=== PATIENT | female | born 1985 | race Caucasian/White ===

== ENCOUNTER 2016-11-09 13:15 | Emergency (ER) | payer BC ==
[2016-11-09] MEDS ORDERED: Acetaminophen TAB* 325 MG PO ONE (16:15)
[2016-11-09 16:42] VITALS: BP 140/90
--- NOTE | 2016-11-09 16:42 | RAD ---
INDICATION: Right foot pain heard pop today. TECHNIQUE: 3 views of the right foot were obtained. FINDINGS: The bones are in normal alignment. No fracture is seen. Joint spaces appear maintained. IMPRESSION: NO EVIDENCE FOR FRACTURE.
[2016-11-09] MEDS ORDERED: predniSONE TAB* 20 MG PO ONE (17:01)
--- NOTE | 2016-11-09 17:17 | UC ---
Blue Jacinto Anna, scribed for Frida Barnhart MD on 11/09/16 at 1452 . Lower Extremity/Ankle HPI - HPI Summary HPI Summary: Patient is a 31 y/o female coming to [facility] [place] presenting with the sudden onset of constant right foot pain that began today. She was walking and went to run across the street, when she felt pain on the bottom of the arch of her foot, near the big toe. The pain is exacerbated by bearing weight. Denies ankle pain. Per triage notes, the patient describes the severity of the pain as 8/10. She took 800 mg of ibuprofen at 1300, which did not alleviate the pain. She has been treated for plantar fasciitis on her right foot, but this has been resolved , and she received her last cortisone shot 1 year ago. She denies a Hx of HTN. - History of Current Complaint Chief Complaint: UCLowerExtremity Stated Complaint: FOOT INJURY Hx Obtained From: Patient Hx Last Menstrual Period: 10/25/16 ?: No Onset/Duration: Sudden Onset, Still Present Severity Initially: Moderate Severity Currently: Moderate Pain Intensity: 8 Pain Scale Used: 0-10 Numeric Aggravating Factor(s): Standing, Ambulation Able to Bear Weight: No - Risk Factors Gout Risk Factors: Negative DVT Risk Factors: Negative Septic Arthritis Risk Factor: Negative - Allergies/Home Medications Allergies/Adverse Reactions: Allergies Allergy/AdvReac Type Severity Reaction Status Date / Time Penicillins Allergy Intermediate Rash And Verified 11/09/16 14:28 Itching Home Medications: Home Medications FLUoxetine CAP* [PROzac CAP*] 40 mg PO BEDTIME 11/09/16 [History Confirmed 11/09] PMH/Surg Hx/FS Hx/Imm Hx - Additional Past Medical History Additional PMH: Hx of plantar fasciitis on her right foot Previously Healthy: Yes Cardiovascular History Of: Denies: Hypertension Psychological History Of: Reports: Anxiety - Surgical History Surgical History: None - Family History Known Family History: Positive: Other - Breast CA, Thyroid issues - Social History 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 Alcohol Use: Occasionally Substance Use Type: None Smoking Status (MU): Never Smoked Tobacco Have You Smoked in the Last Year: No Review of Systems Constitutional: Negative Skin: Negative Eyes: Negative ENT: Negative Respiratory: Negative Cardiovascular: Negative Gastrointestinal: Negative Genitourinary: Negative Motor: Negative Neurovascular: Negative Musculoskeletal: Arthralgia - Right foot pain Neurological: Negative Psychological: Negative All Other Systems Reviewed And Are Negative: Yes Physical Exam Triage Information Reviewed: Yes Appearance: Well-Appearing, Well-Nourished, Pain Distress Vital Signs: Initial Vital Signs Temp 97.8 F 11/09/16 14:23 Pulse 63 11/09/16 14:23 Resp 18 11/09/16 14:23 BP 145/105 11/09/16 14:23 Pulse Ox 100 11/09/16 14:23 Elevated blood pressure noted. Repeat still elevated 140/90 Vital Signs Reviewed: Yes Eyes: Positive: Conjunctiva Clear ENT Exam: Normal Neck: Positive: Supple Respiratory: Positive: Lungs clear, Normal breath sounds, No respiratory distress Cardiovascular: Positive: RRR, No Murmur, Pulses Normal, Brisk Capillary Refill Musculoskeletal Exam: Other - Tenderness on medial plantar aspect of right foot from MTP to heel. No swelling. No redness. No bony tenderness. No ankle bony tenderness. Musculoskeletal: Positive: Strength Intact, ROM Intact, No Edema Neurological: Positive: Alert, Muscle Tone Normal Psychological Exam: Normal Skin Exam: Normal Diagnostics - Radiology Right Foot XR Xray Interpretation: No Acute Changes Radiology Interpretation Completed By: Radiologist - IMPRESSION: No evidence for fracture. Re-Evaluation - Re-Evaluation First Eval Re-Evaluation Time: 16:53 Comment: Updated patient regarding XR results and plan of care. Patient is agreeable with plan. Lower Extremity Course/Dx - Course Course Of Treatment: Allergies noted. High blood pressure noted. Will give post op shoe and crutches, and off work, and start prednisone taper. May take ibuprofen also, all meds with food. Def f/u with PCP for HTN and def f/u with ortho for foot pain, probable recurrent plantar fasciitis. - Differential Dx/Diagnosis Differential Diagnosis/HQI/PQRI: Cellulitis, Contusion, Sprain, Strain, Other - plantar fasciitis Provider Diagnoses: Plantar fasciitis. High blood pressure without diagnosis of hypertension Discharge - Discharge Plan Condition: Stable Disposition: HOME Prescriptions: predniSONE TAB* [Deltasone TAB*] 40 mg PO DAILY #30 tab Patient Education Materials: Crutch Instructions (ED), Plantar Fasciitis Exercises (GEN), Plantar Fasciitis (ED) Forms: *Work Release Referrals: Yair Fernandez MD [Primary Care Provider] - 12/09/16 (Follow up with your primary care provider within one month regarding your blood pressure. ) Gail Reynoso MD [Medical Doctor] - 7 Days (Follow up within one week regarding your right foot. ) Additional Instructions: Start your prednisone in the am. We gave 60mg po at 5PM today. Your blood pressure was elevated today, likely due to pain, but you need definite follow up with your doctor within a month to re evaluate your blood pressure. RETURN TO URGENT CARE FOR ANY NEW OR WORSENING SYMPTOMS The documentation as recorded by the Blue avitia Anna accurately reflects the service I personally performed and the decisions made by me, Frida Barnhart MD.
== END 2016-11-09 17:15 | disposition home or self-care (01) ==
LOC: UCEAST 13:15
DX: M72.2 Plantar fascial fibromatosis (principal); F41.9 Anxiety disorder, unspecified; Z88.0 Allergy status to penicillin; R03.0 Elevated blood-pressure reading, without diagnosis of hypertension
CPT/HCPCS: 99213; A9270-GY; G0463; J7512

== ENCOUNTER 2017-06-26 12:46 | Emergency (ER) | payer BC ==
[2017-06-26 13:07] VITALS: BP 141/100
--- NOTE | 2017-06-26 13:21 | UC ---
Throat Pain/Nasal Gary HPI - HPI Summary HPI Summary: 32 y/o female presents to the urgent care c/o sore throat, nasal congestion and B/L ear pain that has worsen for the past 5 days. Pt reports symptoms started on 06/12/2017. She was seen at [facility] and Dx with Viral pharyngitis. Nasal congestion is producing green nasal discharge. Sore throat is 7/10 with swallowing associated with ROSENBERG, and B/L ear pain and pressure. Pt denies fever, SOB, chest pain, dizziness, abdominal pain, N/V/D - History of Current Complaint Chief Complaint: UCGeneralIllness Stated Complaint: SORE THROAT Time Seen by Provider: 06/26/17 13:10 Hx Obtained From: Patient Hx Last Menstrual Period: 06/21/17 ?: No Onset/Duration: Gradual Onset, Lasting Weeks - 2 weeks, Still Present Severity: Moderate Pain Intensity: 7 Pain Scale Used: 0-10 Numeric Cough: None Associated Signs & Symptoms: Positive: Dysphagia, Sinus Discomfort, Nasal Discharge, Fever - Epiglottits Risk Factors Epiglottis Risk Factors: Negative - Allergies/Home Medications Allergies/Adverse Reactions: Allergies Allergy/AdvReac Type Severity Reaction Status Date / Time Penicillins Allergy Intermediate Rash And Verified 06/26/17 13:02 Itching Home Medications: Home Medications Dextromethorphan-Guaifenesin [Mucinex Dm Maximum Streng 60-1200 mg] 1 tab PO Q12H PRN 06/26/17 [History Confirmed 06/26/17] Ibuprofen TAB* [Advil TAB*] 800 mg PO Q8H PRN 06/26/17 [History Confirmed ] PMH/Surg Hx/FS Hx/Imm Hx Previously Healthy: Yes - Surgical History Surgical History: Yes Surgery Procedure, Year, and Place: WISDOM TEETH - Family History Family History: Breast CA, Thyrodism - Social History Occupation: Employed Full-time Lives: With Family Alcohol Use: Weekly Substance Use Type: None Smoking Status (MU): Former Smoker Length of Time of Smoking/Using Tobacco: 1-2 daily for 5 years Have You Smoked in the Last Year: No When Did the Patient Quit Smoking/Using Tobacco: 2008 - Immunization History Most Recent Influenza Vaccination: Not the 2016/2017 Season Review of Systems Constitutional: Fever Skin: Negative Eyes: Negative ENT: Sore Throat, Ear Ache - B/L ear pain, Nasal Discharge, Sinus Congestion - green discharge, Sinus Pain/Tenderness Respiratory: Negative Cardiovascular: Negative Gastrointestinal: Negative Genitourinary: Negative Motor: Negative Neurovascular: Negative Musculoskeletal: Negative Neurological: Headache Psychological: Negative Is Patient Immunocompromised?: No All Other Systems Reviewed And Are Negative: Yes Physical Exam Triage Information Reviewed: Yes Vital Signs: Initial Vital Signs Temp 98.4 F 06/26/17 13:00 Pulse 70 06/26/17 13:00 Resp 16 06/26/17 13:00 BP 141/100 06/26/17 13:00 Pulse Ox 100 06/26/17 13:00 - Additional Comments VITAL SIGNS: Reviewed. GENERAL: Patient is a well developed and nourished female who is sitting comfortable in the examining table. Patient is not in any acute respiratory distress. HEAD AND FACE: No signs of trauma. No ecchymosis, hematomas or skull depressions. B/L maxillary and frontal sinus tenderness on percussion. EYES: PERRLA, EOMI x 2, No injected conjunctiva, no nystagmus. No photophobia. EARS: Hearing grossly intact. Ear canals and tympanic membranes are within normal limits. NOSE: Edematous and erythematous nasal mucosa with yellowish nasal discharge MOUTH: Positive pharynx with erythema, no exudates, no palatal petechiae. B/L tonsillar WNL. Uvula in midline. NECK: Supple, trachea is midline, Positive anterior cervical lymphadenopathy, no JVD, no carotid bruit, no c-spine tenderness, neck with full ROM. No meningeal signs, no Kernig's or brudzinskis signs. CHEST: Symmetric, no tenderness at palpation LUNGS: Clear to auscultation bilaterally. No wheezing or crackles. CVS: Regular rate and rhythm, S1 and S2 present, no murmurs or gallops appreciated. ABDOMEN: Soft, non-tender. No signs of distention. No rebound no guarding, and no masses palpated. Bowel sounds are normal. EXTREMITIES: FROM in all major joints, no edema, no cyanosis or clubbing. NEURO: Alert and oriented x 3. No acute neurological deficits. Speech is normal and follows commands. SKIN: Dry and warm Throat Pain/Nasal Course/Dx - Course Course Of Treatment: 32 y/o female presents to the urgent care c/o sore throat, nasal congestion and B/L ear pain that has worsen for the past 5 days. Pt reports symptoms started on 06/12/2017. She was seen at [facility] and Dx with Viral pharyngitis. Nasal congestion is producing green nasal discharge. Sore throat is 7/10 with swallowing associated with ROSENBERG, and B/L ear pain and pressure. Pt denies fever, SOB, chest pain, dizziness, abdominal pain, N/V/D. Hx obtained. Pt with acute sinusitis and pharyngitis on examination. Rapid strep ordered, result: negative. Pt with 2 weeks of worsening symptoms.Pt PCN allergic. Pt Rx Z-blaze,flonase nasal spray ibuprofen PO to alleviates symptoms of pain and swelling. Pt advised to rest, eat well. Pt's BP elevated, strongly advised to decrease salt in diet, monitor BP and f/u with PCP for further managment. If symptoms do not improve or worsen advised to return to the urgent care or f/u with her PCP for further evaluation and treatment. Pt understood and agreed with plan of care. - Differential Dx/Diagnosis Differential Diagnosis/HQI/PQRI: Influenza, Laryngitis, Otitis Media, Pharyngitis, Sinusitis, Tonsillitis, URI Provider Diagnoses: 1- Acute bacterial sinusitis. 2-Pharyngitis Discharge - Discharge Plan Condition: Stable Disposition: HOME Prescriptions: Azithromyxin BLAZE (NF) [Z-Blaze (Zithromax) 250 mg tabs #6] 2 tab PO .TODAY, THEN 1 DAILY #6 tab Fluticasone NASAL SPRAY 50MCG* [Flonase NASAL SPRAY 50MCG*] 2 spray BOTH NARES DAILY #1 btl Patient Education Materials: Sinusitis (ED), Low Sodium Diet (ED) Referrals: Yair Fernandez MD [Primary Care Provider] - If Needed Additional Instructions: 1- Please increase fluid intake and rest. take full course of antibiotic to avoid resistance 2-Use Flonase as directed to help drain fluid. Also buy saline drops to clear sinuses 3-Take Sudafed or Claritin PO to alleviates sinus congestion 4-Return to the clinic or PCP if symptoms do not improve for further management and treatment 5- Your BP is elevated today, please decrease salt in your diet and monitor BP at home, if it continues to be elevated, please f/u with your PCP for further management
== END 2017-06-26 13:34 | disposition home or self-care (01) ==
LOC: UCCORT 12:46
DX: J01.90 Acute sinusitis, unspecified (principal); J02.9 Acute pharyngitis, unspecified; Z88.0 Allergy status to penicillin; Z87.891 Personal history of nicotine dependence
CPT/HCPCS: 87651; 99212; G0463

== ENCOUNTER 2017-09-01 18:05 | Emergency (ER) | payer BC ==
--- OUTSIDE RECORDS SUMMARY | 2017-09-01 20:05 | XMS REPORT ---
:1985 External Reference #:[id number] Author Organization [facility] Address [address] [place] [address] Phone [phone] Care Team Providers Name Role Phone Ja Hitchcock MD Primary Care Physician Unavailable Payers Type Date Identification Numbers Payment Provider Subscriber Commercial Effective: Policy Number: [employer]/BS Of Ruth Matta 2014 [id number] MARK Andrews PayID: [id number] [address] [address] [place] [address] Problems Description No Information Family History Date Family Member(s) Problem(s) Comments Father Hypothyroidism Mother Rheumatoid Arthritis Paternal Grandmother Breast Cancer Maternal Grandmother Breast Cancer Social History Type Date Description Comments Marital Status Legal Status: Lives With Spouse Smoke-Free Home is smoke-free Smoke-Free Work is smoke-free Work Status Full-Time Employment Abuse No history of abuse ETOH Use Consumes 4 glasses of wine per week Smoking Patient is a former smoker quit 2009 Recreational Drug Use Denies Drug Use Daily Caffeine Consumes on average 4 cups of regular coffee per day Daily Caffeine Consumes chocolate frequently Exercise Type/Frequency Exercises sporadically Age [address] [place] 17 Years Old # Partners in a Lifetime 25 STD's No STD History Allergies, Adverse Reactions, Alerts Date Description Reaction Status Severity Comments 05/30/2015 Penicillins active & all derivitives Medications Medication Date Status Form Strength Qnty SIG Indications Ordering Provider Nuvaring Active Ring 0.12-0.015m 3units insert in Z30.09 In [facility] 018 g/24HR vagina Charlie Watkins for 3 weeks and then take out for 1 week No Active Hx Unknown Medications 018 - 018 Flagyl Hx Tablets 500mg 14tabs 1 by N77.1 In [place] Watkins M.D. twice a day Venlafaxine /0 Hx Tablets 100mg Unknown HCL 000 Vital Signs Date Vital Result Comment 08/26/2017 Height 63 inches 5'3" Weight 200.00 lb BP Systolic 130 mmHg BP Diastolic 78 mmHg BMI (Body Mass Index) 35.4 kg/m2 08/18/2017 Height 63 inches 5'3" Weight 204.00 lb BP Systolic 120 mmHg BP Diastolic 62 mmHg BMI (Body Mass Index) 36.1 kg/m2 06/05/2015 Height 64 inches 5'4" Weight 180.50 lb BP Systolic 128 mmHg BP Diastolic 76 mmHg BMI (Body Mass Index) 31.0 kg/m2 05/30/2015 Height 64 inches 5'4" Weight 176.00 lb BP Systolic 120 mmHg BP Diastolic 60 mmHg BMI (Body Mass Index) 30.2 kg/m2 Results Test Date Test Result H/L Range Note Laboratory test 08/18/2017 Cytology SEE RESULT BELOW 1 finding HPV 16, 18/45 Genotype 08/18/2017 HPV 16 Genotype Negative Negative HPV 18/45 Genotype Positive Negative Laboratory test finding 05/30/2015 Cytology Pap See Note 2 Genital Culture W/ Gram Stain 05/30/2015 Gram Stain See Note 3 Genital Culture See Note 4 1 SEE RESULT BELOW Name: RUTH REYNOLDS : [address]: In [place] Watkins MD Acct: [id number] Unit: [id number] AGE: 32 Location: [facility] Re08/18/17 SEX: F Status: REG REF SPEC: [id number] FANTA: 08/18/17-[address]: In Glen Watkins MD REQ: [id number] RECD: 08/19/17 STATUS: SOUT _ ORDERED: TP IMAGE ANAL, MILL ORDER SCHEDULER PHYS INTERP, HPV/Thin Prep, HPV 16/18 GENE COMMENTS: [id number] EPITHELIAL CELL ABNORMALITIES Low grade squamous intraepithelial lesion (LSIL) A. Ectocervical/Endocervical Specimen Adequacy: Satisfactory of evaluation Transformation zone component identified Patient Information: HPV: High risk HPV RNA testing regardless of pap results. HPV 16/18 Genotype Reflex Actual Specimen Date: 08/18/17 Other Pertinent History: No History Given Date Time Test Result Flag (u) Normal Range 08/18/17 1630 @ HPV RNA RFLX GE POSITIVE H Negative @ @ The high-risk HPV types detected by the assay include: 16, @ 18, 31, 33, 35, 39, 45, 51, 52, 56, 58, 59, 66, and 68. Signed (signature on file) Juarez Mcclure MD [id number] This Pap test was evaluated with the assistance of the ScoreStreakp Test Imaging System. Due to cytologic findings at the motorboat mechanic microscope, comprehensive manual rescreening by a Instructional Design Technologist may be required. The Pap Smear is a screening test designed to aid in the detection of premalignant and malignant conditions of the uterine cervix. It is not a diagnostic procedure and should not be used as the sole means of detecting cervical cancer. Both false- positive and false- negative reports do occur. Depending on your risk status, a Pap smear should be obtained and evaluated every 1-3 years. END OF REPORT * ML=Testing performed at Main Lab DEPARTMENT OF PATHOLOGY, [address] [place] [address] Juarez Mcclure M.D. Director [facility] # [id number] 2 Interpretation: NEGATIVE FOR INTRAEPITHELIAL LESION OR MALIGNANCY. SHIFT IN [place] SUGGESTIVE OF BACTERIAL VAGINOSIS. Specimen Adequacy: SATISFACTORY FOR EVALUATION. Additional Findings: ENDOCERVICAL/TRANSFORMATION ZONE ABSENT. Cytology Laboratory [address], [address] [place] [address] CYTOLOGY REPORT Name: Ruth Fischer : 1985 (Age: 30) Sex: F Location: [facility] GYN [facility] Med. Rec. # [id number] Date Collected: 05/30/2015 Billing #: [id number] Date Received: 05/30/2015 Requisition # [id number] Physician(s): CHRIS WATKINS MD Source of Specimen: CERVICAL THIN PREP Clinical Information: Date of Last Menstrual Period: None Provided kw Electronic Signature CHERI Roach (ASCP) Reported: 06/04/2015 Also seen by :CHERI Niño (ASCP) [facility] [place] Dx Code(s): Z12.4 A; N76.0 3 GRAM STAIN ! GRAM STAIN SUSPICIOUS FOR BACTERIAL VAGINOSIS ! MANY GRAM VARIABLE COCCOBACILLI ! FEW GRAM POSITIVE COCCI ! 4 Organism 1 ! GARDNERELLA VAGINALIS Quantity ! MANY Procedures Date CPT Code Description Status 06/01/2015 69284 Echography Pelvic Complete Completed Encounters Type Date Location Provider CPT E/M Dx Office Visit 08/18/2017 3:15p Main Office In [place] Watkins M.D. 14446 Z01.419 Z12.4 Z30.09 E66.9 Office Visit 06/05/2015 3:15p Main Office In [place] Watkins M.D. 53085 N76.0 N77.1 Office Visit 05/30/2015 8:30a Main Office In [place] Watkins M.D. 24699 Z01.411 Z12.4 R19.04 N63 Plan of Care No Information Available
--- OUTSIDE RECORDS SUMMARY | 2017-09-01 20:06 | XMS REPORT ---
:1985 External Reference #:[id number] Author Organization [facility] Address [address] [place] [address] Phone [phone] Care Team Providers Name Role Phone Ja Hitchcock MD Primary Care Physician Unavailable Payers Type Date Identification Numbers Payment Provider Subscriber Commercial Effective: Policy Number: [employer]/BS Of Ruth Matta 2014 [id number] CNKia Andrews PayID: [id number] [address] [address] [place] [address] Problems Description No Information Family History Date [...] Consumes chocolate frequently Exercise Type/Frequency Exercises sporadically # Partners in a Lifetime 25 STD's No STD History Allergies, Adverse Reactions, Alerts Date Description Reaction Status Severity Comments 05/30/2015 Penicillins active & all derivitives Medications Medication Date Status Form Strength Qnty SIG Indications Ordering Provider Nuvaring Active Ring 0.12-0.015m 3units insert in Z30.09 In [facility] 018 g/24HR vagina Charlie Watkins for 3 weeks and then take out for 1 week No Active Hx Unknown Medications 018 - 018 Flagyl Hx Tablets 500mg 14tabs 1 by N77.1 In [facility] Tiffany Watkins M.D. twice a day Venlafaxine /0 Hx Tablets 100mg Unknown HCL 000 Vital Signs Date Vital Result Comment 08/18/2017 Height 63 inches 5'3" Weight 204.00 [...] Test Result H/L Range Note Laboratory test finding 08/18/2017 Cytology <pending> Laboratory test finding 05/30/2015 Cytology Pap See Note 1 Genital Culture W/ Gram Stain 05/30/2015 Gram Stain See Note 2 Genital Culture See Note 3 1 Interpretation: NEGATIVE FOR INTRAEPITHELIAL LESION OR MALIGNANCY. SHIFT IN [place] SUGGESTIVE OF BACTERIAL VAGINOSIS. Specimen Adequacy: SATISFACTORY FOR EVALUATION. Additional Findings: ENDOCERVICAL/TRANSFORMATION ZONE ABSENT. Cytology Laboratory [address], [address] [place] [address] CYTOLOGY REPORT Name: Ruth FischerFelisha : 1985 (Age: 30) Sex: F Location: [facility] GYN [facility]. # [id number] Date Collected: 05/30/2015 Billing #: [id number] Date Received: 05/30/2015 Requisition # [id number] Physician(s): IN KADEN WATKINS MD Source of Specimen: CERVICAL THIN PREP Clinical Information: Date of Last Menstrual Period: None Provided kw Electronic Signature CHERI Roach (ASCP) Reported: 06/04/2015 Also seen by :CHERI Niño (ASCP) [facility] Dx Code(s): Z12.4 A; N76.0 2 GRAM STAIN ! GRAM STAIN SUSPICIOUS FOR BACTERIAL VAGINOSIS ! MANY GRAM VARIABLE COCCOBACILLI ! FEW GRAM POSITIVE COCCI ! 3 Organism 1 ! GARDNERELLA VAGINALIS Quantity ! MANY Procedures Date CPT Code Description Status 06/01/2015 87844 Echography Pelvic Complete Completed Encounters Type Date Location Provider CPT E/M Dx Office Visit 06/05/2015 3:15p Main Office In [place] Watkins M.D. 09873 N76.0 N77.1 Office Visit 05/30/2015 8:30a Main Office In [place] Watkins M.D. 01250 Z01.411 Z12.4 R19.04 N63 Plan of Care 08/18/2017 - In Glen Watkins M.D.Z01.419 Encntr for research nurse practitioner exam (general) (routine) w/ o abn findingsFollow up:1 year.Z12.4 Encounter for screening for malignant neoplasm of cervixFollow up:3 years.Z30.09 Encounter for oth general coun and advice on contraceptionNew Medication:Nuvaring 0.12-0.015 mg/59ASN37.9 Obesity, unspecified
[2017-09-01 20:08] VITALS: BP 126/80
--- NOTE | 2017-09-01 20:18 | UC ---
FLU HPI - HPI Summary HPI Summary: 32 y/o female presents to the urgent care c/o sore throat, nasal congestion, body aches, cough, and fever worsening over 3 days. Pt reports pain is 5/10. She has taken Advil and cold and flu OTC to alleviate symptoms. Pt didn't take the flu vaccine last year. Pt denies SOB, chest pain , abdominal pain, N/V/D - History of Current Complaint Chief Complaint: UCGeneralIllness Stated Complaint: FLU LIKE Time Seen by Provider: 09/01/17 20:04 Hx Obtained From: Patient Hx Last Menstrual Period: 08/22/17 Onset/Duration: Gradual Onset, Lasting Days - 3 days, Still Present Severity Currently: Mild Severity Initially: Moderate Pain Intensity: 5 Pain Scale Used: 0-10 Numeric Associated Signs & Symptoms: Positive: Fever, Myalgia, Sore Throat, Nasal Congestion, Headache - Risk Factors Influenza Risk Factors: Negative - Allergy/Home Medications Allergies/Adverse Reactions: Allergies Allergy/AdvReac Type Severity Reaction Status Date / Time Penicillins Allergy Intermediate Rash And Verified 06/26/17 13:02 Itching Amoxicillin Allergy Unknown Verified 09/01/17 20:08 Reaction Details PMH/Surg Hx/FS Hx/Imm Hx Previously Healthy: Yes - Pt denies PMHX - Surgical History Surgical History: Yes Surgery Procedure, Year, and Place: WISDOM TEETH - Family History Family History: Breast CA, Thyrodism - Social History Occupation: Employed Full-time Lives: With Family Alcohol Use: Occasionally Substance Use Type: None Smoking Status (MU): Former Smoker Length of Time of Smoking/Using Tobacco: 1-2 daily for 5 years Have You Smoked in the Last Year: No When Did the Patient Quit Smoking/Using Tobacco: 2008 - Immunization History Most Recent Influenza Vaccination: Not the 2017/2017 Season Review of Systems Constitutional: Fever, Other - body aches Skin: Negative Eyes: Negative ENT: Sore Throat, Nasal Discharge, Sinus Congestion Respiratory: Cough Cardiovascular: Negative Gastrointestinal: Negative Genitourinary: Negative Motor: Negative Neurovascular: Negative Musculoskeletal: Negative Neurological: Headache Psychological: Negative Is Patient Immunocompromised?: No All Other Systems Reviewed And Are Negative: Yes Physical Exam Triage Information Reviewed: Yes Vital Signs: Initial Vital Signs Temp 98.8 F 09/01/17 20:03 Pulse 72 09/01/17 20:03 Resp 18 09/01/17 20:03 BP 126/80 09/01/17 20:03 Pulse Ox 100 09/01/17 20:03 - Additional Comments VITAL SIGNS: Reviewed. GENERAL: Patient is a well developed and nourished female who is sitting comfortable in the examining table. Patient is not in any acute respiratory distress. HEAD AND FACE: No signs of trauma. No ecchymosis, hematomas or skull depressions. No sinus tenderness. edematous erythematous nasal mucosa with yellowish discharge, EYES: PERRLA, EOMI x 2, No injected conjunctiva, clear watery eyes, no nystagmus. No photophobia. EARS: Hearing grossly intact. Ear canals and tympanic membranes are within normal limits. MOUTH: Positive pharynx with erythema, no exudates,no palatal petechiae. no B/L tonsillar enlargement Uvula in midline. NECK: Supple, trachea is midline, Positive anterior cervical lymphadenopathy, no JVD, no carotid bruit, no c-spine tenderness, neck with full ROM. No meningeal signs, no Kernig's or brudzinskis signs. CHEST: Symmetric, no tenderness at palpation LUNGS: Clear to auscultation bilaterally. No wheezing or crackles. CVS: Regular rate and rhythm, S1 and S2 present, no murmurs or gallops appreciated. ABDOMEN: Soft, non-tender. No signs of distention. No rebound no guarding, and no masses palpated. Bowel sounds are normal. EXTREMITIES: FROM in all major joints, no edema, no cyanosis or clubbing. NEURO: Alert and oriented x 3. No acute neurological deficits. Speech is normal and follows commands. SKIN: Dry and warm Flu Course/Dx - Course Course Of Treatment: 32 y/o female presents to the urgent care c/o sore throat, nasal congestion, body aches, cough, and fever worsening over 3 days. Pt reports pain is 5/10. She has taken Advil and cold and flu OTC to alleviate symptoms. Pt didn't take the flu vaccine last year. Pt denies SOB, chest pain , abdominal pain, N/V/D. Hx obtained. Pt with URI on examination. Influenza A&B ordered: result: negative.Pt ibuprofen PO to alleviates symptoms. Advised on hand washing . Pt advised to rest, increase fluid intake, eat well and avoid strenuous exercise. If symptoms do not improve or worsen advised to return to the urgent care or f/u with her PCP for further evaluation and treatment. Pt understood and agreed with plan of care. - Differential Dx/Diagnosis Differential Diagnosis/HQI/PQRI: Bronchitis, Influenza, Upper Respiratory Infection, Other - phayngitis, URI Provider Diagnoses: 1- Viral syndrome Discharge - Discharge Plan Condition: Stable Disposition: HOME Prescriptions: Ibuprofen TAB* [Motrin TAB* 800 MG] 800 mg PO Q6H PRN #20 tab PRN Reason: Pain Patient Education Materials: Viral Syndrome (ED) Forms: *Work Release Referrals: Yair Fernandez MD [Primary Care Provider] - 3 Days Additional Instructions: 1-Please take ibuprofen PO q6-8hrs prn as instructed after meals to alleviate pain and swelling. Increase fluid intake, eat well, rest and avoid strenuous exercise. Use saline drops on your nostrils to clear sinuses 2-If symptoms do not improve or worsen please return to the urgent care or f/u with your PCP for further evaluation and treatment.
== END 2017-09-01 20:58 | disposition home or self-care (01) ==
LOC: UCCORT 18:05
DX: B34.9 Viral infection, unspecified (principal); Z72.89 Other problems related to lifestyle; Z87.891 Personal history of nicotine dependence
CPT/HCPCS: 87502; 99212; G0463

== ENCOUNTER 2018-06-15 16:09 | Emergency (ER) | payer BC ==
[2018-06-15 16:49] VITALS: BP 136/76
--- NOTE | 2018-06-15 17:47 | UC ---
Upper Extremity HPI - HPI Summary HPI Summary: 33 year old female presents with complaints of left radial wrist pain. States she accidentally struck her wrist on car door 3 days ago. Notes swelling to the area. Denies bruising, erythema, numbness or tingling. - History of Current Complaint Chief Complaint: UCUpperExtremity Stated Complaint: LT WRIST PAIN Time Seen by Provider: 06/15/18 17:01 Hx Obtained From: Patient Hx Last Menstrual Period: 05/22/18 Onset/Duration: Sudden Onset, Lasting Days - 3 Severity Currently: Mild Pain Intensity: 5 Character: Aching Aggravating Factor(s): Movement Alleviating Factor(s): Nothing Associated Signs And Symptoms: Positive: Swelling. Negative: Redness, Bruising , Fever, Weakness, Numbness/Tingling - Allergies/Home Medications Allergies/Adverse Reactions: Allergies Allergy/AdvReac Type Severity Reaction Status Date / Time amoxicillin Allergy Unknown Verified 06/15/18 16:50 Reaction Details Penicillins Allergy Rash And Verified 06/15/18 16:50 Itching Home Medications: Home Medications Ibuprofen TAB* [Motrin TAB* 800 MG] 400 mg PO BID 06/15/18 [History Confirmed ] diphenhydrAMINE HCl [Benadryl Allergy 25 MG CAP] 25 mg PO BEDTIME 06/15/18 [ History Confirmed 06/15/18] PMH/Surg Hx/FS Hx/Imm Hx Previously Healthy: Yes - Denies significant PMH - Surgical History Surgical History: Yes Surgery Procedure, Year, and Place: WISDOM TEETH - Family History Known Family History: Positive: Other - Breast CA, Thyroid issues Family History: Breast CA, Thyrodism - Social History Occupation: Employed Full-time Lives: With Family Alcohol Use: Weekly Substance Use Type: None Smoking Status (MU): Former Smoker Length of Time of Smoking/Using Tobacco: 1-2 daily for 5 years Have You Smoked in the Last Year: No When Did the Patient Quit Smoking/Using Tobacco: 2008 - Immunization History Most Recent Influenza Vaccination: Not the 2016/2017 Season Review of Systems Skin: Negative Motor: Negative Neurovascular: Negative Musculoskeletal: Other: - See HPI Neurological: Negative Is Patient Immunocompromised?: No All Other Systems Reviewed And Are Negative: Yes Physical Exam Triage Information Reviewed: Yes Appearance: Well-Appearing, No Pain Distress, Well-Nourished Vital Signs: Initial Vital Signs Temp 97.1 F 06/15/18 16:45 Pulse 77 06/15/18 16:45 Resp 15 06/15/18 16:45 BP 136/76 06/15/18 16:45 Pulse Ox 100 06/15/18 16:45 Vital Signs Reviewed: Yes Respiratory: Positive: No respiratory distress Cardiovascular: Positive: Pulses Normal, Brisk Capillary Refill Musculoskeletal: Positive: Strength Intact, ROM Intact, Other: - Mild tenderness with mild swelling to distal radial wrist. No gross deformity, erythema, or ecchymosis. Neurological: Positive: Alert, Other: - Sensation intact distally Skin Exam: Normal Diagnostics - Radiology No standard instances Radiology Interpretation Completed By: Radiologist Summary of Radiographic Findings: Patient Name: RAJENDRA REYNOLDS Medical Record#: [id number]. Ordering Physician: Cata Adkins MD Acct.#: [id number]. : 1985 Age: 33 Sex: F Location: [facility] - [place]. Exam Date: 06/15/181657 ADM Status: REG ER. Order Information: WRIST LEFT 3 + VWS. Accession Number: [id number]. CPT: 92170. INDICATION: Left wrist injury. TECHNIQUE: 3 views of the left wrist were obtained. FINDINGS: The bones are in normal alignment. No fracture is seen. Joint spaces appear. maintained. IMPRESSION: NO EVIDENCE FOR FRACTURE. Upper Extremity Course/Dx - Course Course Of Treatment: 42 year old female with left wrist pain after accidentally striking on car door 3 days ago. Exam unremarkable except for mild tenderness and swelling to distal radial wrist. X-ray negative for fracture. Recommend conservative treatment with OTC analgesics and RICE. She is to follow up with PCP in 7 days if symptoms persist. Warning symptoms reviewed. Verbalizes understanding and agrees with POC. - Differential Dx/Diagnosis Differential Diagnosis/HQI/PQRI: Contusion, Fracture (Closed), Hematoma Provider Diagnoses: left wrist contusion Discharge - Sign-Out/Discharge Documenting (check all that apply): Patient Departure All imaging exams completed and their final reports reviewed: Yes - Discharge Plan Condition: Stable Disposition: HOME Patient Education Materials: Contusion in Adults (ED) Referrals: Yair Fernandez MD [Primary Care Provider] - 7 Days (If symptoms persist) Additional Instructions: The X-ray of your wrist performed in the clinic tonight showed no evidence of fracture. I suspect that you have a contusion (deep bruise) from your injury. Rest the arm as much as possible. Avoid heavy lifting until pain-free. Apply ice for 15-20 minutes 3-4 times a day for next few days. Use over the counter pain medication such as acetaminophen (Tylenol) or ibuprofen (Advil, Motrin) according to directions as needed for pain. Follow up with your primary care provider in 7 days if symptoms persist. Seek immediate medical attention in the emergency room if you have pain that is not managed with pain medication, increased swelling, numbness or tingling in the hand or fingers, or any worsening of symptoms. - Billing Disposition and Condition Condition: STABLE Disposition: Home
== END 2018-06-15 17:57 | disposition home or self-care (01) ==
LOC: UCCORT 16:09
DX: S60.212A Contusion of left wrist, initial encounter (principal); W22.8XXA Striking against or struck by other objects, initial encounter; Y92.9 Unspecified place or not applicable; Z87.891 Personal history of nicotine dependence; Z88.0 Allergy status to penicillin; Z88.1 Allergy status to other antibiotic agents
CPT/HCPCS: 99211; G0463

== ENCOUNTER 2018-08-08 11:12 | Emergency (ER) | payer BC ==
[2018-08-08 12:42] VITALS: BP 134/94
--- NOTE | 2018-08-08 12:57 | UC ---
Throat Pain/Nasal Gary HPI - HPI Summary HPI Summary: Nigel sinus congestion and pressure. No fever. This has been about 4 day. No prior ENT surgery. - History of Current Complaint Chief Complaint: UCRespiratory Stated Complaint: SINUS Time Seen by Provider: 08/08/18 12:45 Hx Obtained From: Patient Hx Last Menstrual Period: 07/16/18 Onset/Duration: Gradual Onset, Lasting Days Severity: Moderate Pain Intensity: 4 Cough: Nonproductive Associated Signs & Symptoms: Positive: Sinus Discomfort. Negative: Fever, Vomiting, Rash - Allergies/Home Medications Allergies/Adverse Reactions: Allergies Allergy/AdvReac Type Severity Reaction Status Date / Time amoxicillin Allergy Unknown Verified 08/08/18 12:42 Reaction Details Penicillins Allergy Rash And Verified 08/08/18 12:42 Itching Home Medications: Home Medications Phenylephrine HCl [Sinus PE Decongestant] 10 mg PO ONCE PRN 08/08/18 [History Confirmed 08/08/18] PMH/Surg Hx/FS Hx/Imm Hx Previously Healthy: No - prior sinusitis. - Surgical History Surgical History: None Surgery Procedure, Year, and Place: WISDOM TEETH - Family History Known Family History: Positive: Other - Breast CA, Thyroid issues Family History: Breast CA, Thyrodism - Social History Alcohol Use: Weekly Substance Use Type: None Smoking Status (MU): Former Smoker Length of Time of Smoking/Using Tobacco: 1-2 daily for 5 years Have You Smoked in the Last Year: No When Did the Patient Quit Smoking/Using Tobacco: 2008 - Immunization History Most Recent Influenza Vaccination: Not the 2017/2017 Season Review of Systems All Other Systems Reviewed And Are Negative: Yes ENT: Positive: Sinus Congestion Respiratory: Positive: Cough Physical Exam Triage Information Reviewed: Yes Appearance: Well-Appearing, No Pain Distress, Obese Vital Signs: Initial Vital Signs Temp 98.1 F 08/08/18 12:38 Pulse 78 08/08/18 12:38 Resp 16 08/08/18 12:38 BP 134/94 08/08/18 12:38 Pulse Ox 100 08/08/18 12:38 Vital Signs Reviewed: Yes Eyes: Positive: Conjunctiva Clear. Negative: Conjunctiva Inflamed ENT: Positive: Normal ENT inspection, Pharynx normal, Nasal congestion, TMs normal, Uvula midline. Negative: Pharyngeal erythema, Nasal drainage, TM bulging, TM dull, TM red, Tonsillar swelling, Tonsillar exudate, Trismus, Muffled voice Neck: Positive: Supple, Nontender, No Lymphadenopathy Respiratory: Positive: Lungs clear, Normal breath sounds, No respiratory distress, No accessory muscle use. Negative: Respiratory distress, Decreased breath sounds, Accessory muscle use, Crackles, Rhonchi, Stridor, Wheezing Cardiovascular: Positive: No Murmur. Negative: Tachycardia, Bradycardia Abdomen Description: Negative: Distended, Guarding Musculoskeletal: Positive: Strength Intact, ROM Intact, No Edema Neurological: Positive: Alert, Muscle Tone Normal. Negative: Fatigued Psychological: Positive: Age Appropriate Behavior Skin: Negative: Rashes Throat Pain/Nasal Course/Dx - Differential Dx/Diagnosis Provider Diagnosis: URI (upper respiratory infection) Discharge - Sign-Out/Discharge Documenting (check all that apply): Patient Departure All imaging exams completed and their final reports reviewed: No Studies - Discharge Plan Condition: Good Disposition: HOME Prescriptions: levoFLOXacin [Levofloxacin] 500 mg PO DAILY #7 tablet Patient Education Materials: Upper Respiratory Infection (ED) Referrals: Yair Fernandez MD [Primary Care Provider] - If Needed - Billing Disposition and Condition Condition: GOOD Disposition: Home
== END 2018-08-08 12:57 | disposition home or self-care (01) ==
LOC: UCCORT 11:12
DX: J06.9 Acute upper respiratory infection, unspecified (principal); Z88.0 Allergy status to penicillin; Z87.891 Personal history of nicotine dependence
CPT/HCPCS: 99212; G0463

== ENCOUNTER 2018-08-17 12:16 | Emergency (ER) | payer BC ==
[2018-08-17 13:43] VITALS: BP 138/100
--- NOTE | 2018-08-17 14:17 | UC ---
Abdominal Pain Female HPI - HPI Summary HPI Summary: Pt presents with c/o sudden onset of diarrhea x3 , abdominal pain, bloating, gas and concern for "coffee grind" appearing loose stool. Pt states that this occurred this am between 5:45 am and 9 am. Now c/o decreased appetite, weakness , and generalized malaise. - History of Current Complaint Chief Complaint: UCGeneralIllness Stated Complaint: STOMACH Time Seen by Provider: 08/17/18 13:58 Hx Obtained From: Patient Hx Last Menstrual Period: 08/13/18 ?: No Onset/Duration: Sudden Onset, Still Present Timing: Constant Severity Initially: Moderate Severity Currently: Moderate Pain Intensity: 8 Location: Diffuse Radiates: No Character: Aching, Colicy, Dull Aggravating Factor(s): Food Alleviating Factor(s): Nothing Associated Signs and Symptoms: Positive: Decreased Appetite, Nausea, Diarrhea - Risk Factors Ectopic Risk Factor: Negative Ovarian Torsion Risk Factor: Reproductive Age Allergies/Adverse Reactions: Allergies Allergy/AdvReac Type Severity Reaction Status Date / Time amoxicillin Allergy Unknown Verified 08/17/18 13:30 Reaction Details Penicillins Allergy Rash And Verified 08/17/18 13:30 Itching PMH/Surg Hx/FS Hx/Imm Hx Previously Healthy: Yes - Surgical History Surgical History: Yes Surgery Procedure, Year, and Place: WISDOM TEETH - Family History Known Family History: Positive: Other - Breast CA, Thyroid issues Family History: Breast CA, Thyrodism - Social History 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 Lives: With Family Alcohol Use: Weekly Substance Use Type: None Smoking Status (MU): Former Smoker Length of Time of Smoking/Using Tobacco: 1-2 daily for 5 years Have You Smoked in the Last Year: No When Did the Patient Quit Smoking/Using Tobacco: 2008 - Immunization History Most Recent Influenza Vaccination: Not the 2017/2017 Season Review of Systems All Other Systems Reviewed And Are Negative: Yes Constitutional: Positive: Chills, Fatigue Skin: Positive: Negative Eyes: Positive: Negative ENT: Positive: Negative Respiratory: Positive: Negative Cardiovascular: Positive: Negative Gastrointestinal: Positive: Abdominal Pain, Diarrhea, Nausea Genitourinary: Positive: Negative Motor: Positive: Negative Neurovascular: Positive: Negative Musculoskeletal: Positive: Negative Neurological: Positive: Weakness Psychological: Positive: Negative Is Patient Immunocompromised?: No Physical Exam Triage Information Reviewed: Yes Appearance: Well-Appearing Vital Signs: Initial Vital Signs Temp 97.9 F 08/17/18 13:31 Pulse 77 08/17/18 13:31 Resp 16 08/17/18 13:31 BP 138/100 08/17/18 13:31 Pulse Ox 100 08/17/18 13:31 Vital Signs Reviewed: Yes Eye Exam: Normal ENT Exam: Normal Dental Exam: Normal Neck exam: Normal Respiratory Exam: Normal Cardiovascular Exam: Normal Abdominal Exam: Other - generalized discomfort Abdomen Description: Positive: No Organomegaly, Soft Bowel Sounds: Positive: Present Musculoskeletal Exam: Normal Neurological Exam: Normal Psychological Exam: Normal Skin Exam: Normal Abd Pain Female Course/Dx - Course Course Of Treatment: Pt was instructed to f/u with PCP as soon as possible. - Differential Dx/Diagnosis Differential Diagnosis: Irritable Bowel Syndrome, Urinary Tract Infection Provider Diagnosis: Gastroenteritis, Abdominal pain Discharge - Sign-Out/Discharge Documenting (check all that apply): Patient Departure All imaging exams completed and their final reports reviewed: No Studies - Discharge Plan Condition: Stable Disposition: HOME Prescriptions: Ondansetron HCl [Zofran] 8 mg PO Q8H PRN #15 tablet PRN Reason: Nausea Patient Education Materials: Gastroenteritis (ED), Acute Abdominal Pain (ED), Gas and Bloating (ED) Referrals: Yair Fernandez MD [Primary Care Provider] - As Soon As Possible - Billing Disposition and Condition Condition: STABLE Disposition: Home
== END 2018-08-17 14:42 | disposition home or self-care (01) ==
LOC: UCCORT 12:16
DX: R10.84 Generalized abdominal pain (principal); K52.9 Noninfective gastroenteritis and colitis, unspecified; Z88.1 Allergy status to other antibiotic agents; Z87.891 Personal history of nicotine dependence
CPT/HCPCS: 81003; 84702; 93005; 99212; G0463

== ENCOUNTER 2019-09-24 10:59 | Emergency (ER) | payer BC ==
[2019-09-24 11:39] VITALS: BP 118/75
--- NOTE | 2019-09-24 12:23 | UC ---
Complaint Female HPI - HPI Summary HPI Summary: Pt presents with sudden onset right side flank pain, pelvic pressure and bloating. - History Of Current Complaint Chief Complaint: UCGU Stated Complaint: LOWER BACK/PELVIC PAIN/URINARY Time Seen by Provider: 09/24/19 11:43 Hx Obtained From: Patient Hx Last Menstrual Period: 08/13/18 ?: No Onset/Duration: Sudden Onset, Still Present Timing: Constant Severity Initially: Mild Severity Currently: Moderate Pain Intensity: 0 Pain Scale Used: 0-10 Numeric Character: Sharp, Dull, Colicy Aggravating Factor(s): Movement Alleviating Factor(s): Nothing Associated Signs And Symptoms: Positive: Back Pain - Risk Factors Ectopic Risk Factor: Negative Ovarian Torsion Risk Factor: Reproductive Age - Allergies/Home Medications Allergies/Adverse Reactions: Allergies Allergy/AdvReac Type Severity Reaction Status Date / Time amoxicillin Allergy Unknown Verified 09/24/19 11:38 Reaction Details Penicillins Allergy Rash And Verified 09/24/19 11:38 Itching Home Medications: Home Medications NK [No Home Medications Reported] 09/24/19 [History Confirmed 09/24/19] PMH/Surg Hx/FS Hx/Imm Hx Previously Healthy: Yes - Surgical History Surgical History: Yes Surgery Procedure, Year, and Place: WISDOM TEETH - Family History Known Family History: Positive: Other - Breast CA, Thyroid issues Family History: Breast CA, Thyrodism - Social History Occupation: Employed Full-time Lives: With Family Alcohol Use: Weekly Substance Use Type: None Smoking Status (MU): Former Smoker Length of Time of Smoking/Using Tobacco: 1-2 daily for 5 years Have You Smoked in the Last Year: No When Did the Patient Quit Smoking/Using Tobacco: 2008 - Immunization History Most Recent Influenza Vaccination: Not the 2017/2017 Season Review of Systems All Other Systems Reviewed And Are Negative: Yes Skin: Positive: Negative Eyes: Positive: Negative ENT: Positive: Negative Respiratory: Positive: Negative Cardiovascular: Positive: Negative Gastrointestinal: Positive: Negative Genitourinary: Positive: Other - right flank pain, pelvic pressure and blaoting Motor: Positive: Negative Neurovascular: Positive: Negative Musculoskeletal: Positive: Negative Neurological/Mental Status: Positive: Negative Psychological: Positive: Negative Is Patient Immunocompromised?: No Physical Exam Triage Information Reviewed: Yes Appearance: Well-Appearing, No Pain Distress Vital Signs: Initial Vital Signs Temp 98.5 F 09/24/19 11:32 Pulse 66 02/15/20 11:32 Resp 18 09/24/19 11:32 BP 118/75 09/24/19 11:32 Pulse Ox 100 09/24/19 11:32 Vital Signs Reviewed: Yes Eye Exam: Normal ENT Exam: Normal Dental Exam: Normal Neck exam: Normal Respiratory Exam: Normal Cardiovascular Exam: Normal Abdomen Description: Positive: CVA Tenderness (R) Bowel Sounds: Positive: Present Musculoskeletal Exam: Normal Neurological Exam: Normal Psychological Exam: Normal Skin Exam: Normal Complaint Female Dx - Course Course Of Treatment: I discussed my concern for kidney stone with pt and she verbalized understanding and agreed to plan of care. - Differential Dx/Diagnosis Differential Diagnosis/HQI/PQRI: , Ureteral Stone, Urinary Tract Infection Provider Diagnosis: Right flank pain Discharge ED - Sign-Out/Discharge Documenting (check all that apply): Patient Departure All imaging exams completed and their final reports reviewed: No Studies - Discharge Plan Condition: Stable Disposition: HOME Patient Education Materials: Flank Pain (ED) Referrals: Kyung Garcia MD [Primary Care Provider] - If Needed Additional Instructions: Please follow up with your PCP as needed. Please note that if your symptoms do not improve or they worsen, please go directly to the closest emergency room as soon as possible. - Billing Disposition and Condition Condition: STABLE Disposition: Home
== END 2019-09-24 12:13 | disposition home or self-care (01) ==
LOC: UCCORT 10:59
DX: R10.9 Unspecified abdominal pain (principal); R19.8 Other specified symptoms and signs involving the digestive system and abdomen; Z88.0 Allergy status to penicillin; Z87.891 Personal history of nicotine dependence
CPT/HCPCS: 81003; 84702; 99211; G0463